=== PATIENT | female | born 1960 | race Caucasian/White ===

== ENCOUNTER 2020-07-26 17:40 | Emergency (ER) | payer OTHER, SELFPAY ==
[2020-07-26] VITALS (8 sets, daily range): BP systolic 119–144; BP diastolic 58–96; PULSE 91–108; RESP 15–25; TEMP 37.7; O2SAT 100
--- NOTE | ~2020-07-26 | CT_ITS ---
EXAMINATION: CT abdomen pelvis wo con DATE: 07/26/2020 19:40 INDICATION: Kidney stones. TECHNIQUE: Computed tomography (CT) of the abdomen and pelvis was performed without intravenous contr ast. Automated exposure control and iterative reconstruction technique were employed. The dose-length product was 184.96 mGy-cm. COMPARISON: None FINDINGS: Lung bases are clear. Heart size is normal. No pericardial or pleural effusion. Bilateral breast impl ants. Liver, gallbladder, spleen, pancreas and bilateral adrenal glands are normal. Bilateral nephrol ithiasis including 3 stones measuring up to 2 mm in the right kidney and at least 5 stones measuring up to 4 mm in the left kidney. There is mild left hydroureteronephrosis extending proximally from a p air of stones in the mid left ureter, the more cephalad measuring 5 x 3 mm and the more caudal measur ing 3 x 4 mm. There is moderate colonic diverticulosis with a sigmoid predominance. There is no danial cent inflammatory change to suggest diverticulitis. Small bowel and appendix are normal. Bladder, an teverted uterus and bilateral adnexa are unremarkable. No free intraperitoneal gas or fluid. No patho logically enlarged abdominal or pelvic lymphadenopathy. Mild lumbar levocurvature. Minimal to mild sc attered degenerative skeletal changes. IMPRESSION: 1. Bilateral nephrolithiasis with a pair of obstructing stones in the mid left ureter resulting in mi ld left hydroureteronephrosis. 2. Moderate diverticulosis. Reviewed, dictated and finalized at location A. IMPRESSION: 1. Bilateral nephrolithiasis with a pair of obstructing stones in the mid left ureter resulting in mild left hydroureteronephrosis. 2. Moderate diverticulosis.
--- NOTE | ~2020-07-26 | XR_ITS ---
EXAMINATION: XR chest 2V DATE: 07/26/2020 19:08 INDICATION: Tachycardia. Hematuria and weakness. TECHNIQUE: frontal and lateral views of the chest were obtained. COMPARISON: Chest radiograph and CT dated 04/10/2014 FINDINGS: Unchanged chronic mild left apical pleural-parenchymal scarring. Lungs otherwise clear with no other airspace opacities, pulmonary edema, pleural effusion or pneumothorax. The cardiomediastinal silhouet te is normal. Bilateral breast implants. IMPRESSION: 1. No acute cardiopulmonary disease. Reviewed, dictated and finalized at location A.
--- NOTE | 2020-07-26 17:49 | ECG_ITS ---
Measurements Intervals [place] Rate: 116 P: 69 CA: 128 QRS: 79 QRSD: 82 T: 57 QT: 295 QTc: 410 Interpretive Statements SINUS TACHYCARDIA BASELINE ARTIFACT- I, III, AVR, AVL, AVF, V1-V2, V4-V5 ABNORMAL ECG Electronically Signed On 07-26-2020 20:31:52 CDT by Frank Shelton D.O.
[2020-07-26 18:07] LABS: Basophils Percent Auto 0.3 % (0.2-1.2); Eosinophils Absolute Auto 0.1 K/mm3 (0-0.3); Eosinophils Percent Auto 0.9 % (0-4.4); Hematocrit 39.7 % (37.0-47.0); Hemoglobin 13.6 g/dL (12.0-15.0); Immature Granulocyte Absolute 0.03 K/mm3 (0.00-0.031); Immature Granulocyte Percent A 0.3 % (0-0.5); Lymphocytes Absolute Auto 1.83 K/mm3 (0.9-3.2); Lymphocytes Percent Auto 19.6 % (18.3-44.2); Mean Corpuscular HGB Conc 34.3 g/dl (32-36); Mean Corpuscular Hemoglobin 32.8 pg (26-34); Mean Corpuscular Volume 95.7 fl (80-100); Mean Platelet Volume 10.7 fl (7.4-10.4); Monocytes Absolute Auto 0.9 K/mm3 (0.1-0.6); Monocytes Percent Auto 9.9 % (2.6-8.5); Neutrophils Absolute Auto 6.5 K/mm3 (1.3-6.7); Platelet Count Result 295 k/mm3 (150-375); Red Blood Count 4.15 M/mm3 (4.2-5.4); Red Cell Distribution Width 12.9 % (11.5-14.5); White Blood Count 9.3 K/mm3 (4.5-10.0)
[2020-07-26 18:18] LABS: Anion Gap 15 mmol/L (8-16); Blood Urea Nitrogen 40 mg/dL (7-17); Calcium 10.4 mg/dL (8.4-10.2); Carbon Dioxide 24 mmol/L (22-30); Chloride 97 mmol/L (98-107); Estimated CRCL calculation 36 ml/min; Estimated Glomerular Filt Rate 36; Glucose 110 mg/dL (65-105); Partial Thromboplastin Time 25.5 SECONDS (22.3-36.8); Potassium 3.9 mmol/L (3.4-5.0); Sodium 136 mmol/L (137-145)
[2020-07-26 18:30] LABS: Troponin I < 0.012 ng/mL (0.000-0.034)
[2020-07-26] MEDS: ASPIRIN 81 MG CHEWABLE TABLET 324 MG PO (18:38)
--- NOTE | 2020-07-26 18:46 | ED.GENADULT ---
HPI - General Adult General Chief complaint: Arrhythmia/Palpitations Stated complaint: racing heart Time Seen by Provider: 07/26/20 18:30 Source: patient Mode of arrival: ambulatory Limitations: no limitations History of Present Illness HPI narrative: 60 years old white female presents with general weakness and dizziness started weeks ago. Patient reports the above symptoms started after pulling her teeth for dentures placement 6- 7 weeks ago. Patient had new denture 5 days ago, is not repeated today because at first, last time was seen by her dentist 2 days ago. Patient did not drink today because patient does not be attention to fluids, she did not eat solid food because it hurt, but was able soft diet like Jell-O and pudding. Currently patient is asymptomatic. Patient denies any fever, chills, nausea, vomiting, diarrhea, constipation, chest pain, shortness of breath, back pain or headache. Related Data Home Medications Medication Instructions Recorded Confirmed baclofen 10 mg PO 07/26/20 bupropion HCl 150 mg PO 07/26/20 hydrochlorothiazide 25 mg PO 07/26/20 Allergies Allergy/AdvReac Type Severity Reaction Status Date / Time No Known Allergies Allergy Unverified 07/26/20 18:32 Review of Systems Review of Systems: Narrative: CONSTITUTIONAL: Denies fever, chills, or sweats. EYES: Denies visual changes, redness, or discharge. ENT: Denies rhinorrhea, congestion, sore throat, or otalgia. CARDIOVASCULAR: Denies chest pain, palpitations, or edema. RESPIRATORY: Denies cough or dyspnea. GASTROINTESTINAL: Denies abdominal pain, nausea, vomiting, or diarrhea. GENITOURINARY: Denies dysuria or hematuria. SKIN: Denies rash or itching. MUSCULOSKELETAL: Denies back pain, joint pain, or myalgia. NEUROLOGIC: Denies headache, numbness, or weakness. PSYCHIATRIC: Denies anxiety or depression. PMFSH Past Medical History Medical History (Updated 07/26/20 @ 19:02 by Antionette Martin MD) Depression Hypertension Social History Social History (Updated 07/26/20 @ 18:50 by Antionette Martin MD) Social History: Patient denies smoking or drinking. Second hand tobacco smoke exposure: No Exam Narrative: Exam Narrative: General appearance: Well-developed, well-nourished Skin: Normal color Head: Normocephalic, nontraumatic Eyes: Clear conjunctiva ENT: Oropharynx normal, ears normal, nose normal, patient does not have teeth or dentures. Neck: Supple, nontender Chest and respiratory: Airway patent, no respiratory distress, no accessory muscle use Heart: Regular rate/rhythm Abdomen: Soft, nontender, no organomegaly, quiet bowel sounds Vascular: Normal peripheral pulses, normal capillary refill. Musculoskeletal: Normal range of motion, nontender back Neurologic: Alert and oriented ?3, LOAN ASSISTANT is normal as tested, no gross motor deficit Course Course Emergency Course: Stable Vital Signs Vital signs: Vital Signs Temperature 37.7 C H 07/26/20 17:51 Pulse Rate 100 07/26/20 17:51 Respiratory Rate 16 07/26/20 17:51 Blood Pressure 119/58 L 07/26/20 17:51 Pulse Oximetry 100 07/26/20 17:51 Temperature 37.7 C H 07/26/20 17:51 Pulse Rate 99 07/26/20 18:32 Respiratory Rate 23 H 07/26/20 18:32 Blood Pressure 143/95 H 07/26/20 18:32 Pulse Oximetry 100 07/26/20 18:32 Medical Decision Making MDM Narrative Medical decision making narrative: Patient presents with dizziness and weakness since pulling her teeth 6 -7 months ago. Poor p.o. intake probably the underlying cause of patient's symptoms. Patient reports eating solid food hurt, but drinking does not hurt and does not drink because she does not pay attention to fluid. Labs, IV flu
[2020-07-26 18:47] LABS: Add Urine Microscopic? YES; Appearance Urine Cloudy (Clear); Bilirubin Urine Negative (Negative); Blood Urine 3+ (Negative); Color Urine Red (Yellow); Glucose Urine UA Negative (Negative); Ketones Urine Trace mg/dL (Negative); Leukocyte Esterase Ur Trace LEU/UL (Negative); Mucus Urine Rare /lpf; Nitrate Urine Negative (Negative); Protein Urine 2+ mg/dL (Negative); RBC Urine >75 /hpf (0-2); Specific Grav Ur 1.018 (1.001-1.035); Squamous Epithelial Cell Urine Many /hpf (Few); Urobilinogen Urine Negative mg/dL (<2.0)
[2020-07-26] MEDS: SODIUM CHLORIDE 0.9% IV 1,000 ML 999 ML IV CONT ×2 (18:49→19:48)
--- NOTE | 2020-07-26 19:27 | ED.GENADULT ---
HPI - General Adult General Chief complaint: Arrhythmia/Palpitations Stated complaint: racing heart Time Seen by Provider: 07/26/20 18:30 Source: patient Mode of arrival: ambulatory Limitations: no limitations History of Present Illness HPI narrative: 60 years old white female presents with tachycardia on exertion with lightheadedness and dizziness. Patient got up fast from sleep to help her who had large scalp laceration with a lot of blood. Patient looked at the blood and immediately fainted, went to urgent care with a diagnosis of fracture of left fibula and tachycardia at that time. Patient report fainting when she see blood or watch scary movies. Patient noticed that her urine is bloody since yesterday. Denies any frequency or burning sensation. Patient had similar symptoms secondary to kidney stone. Currently complaining of little suprapubic discomfort. Patient denies any nausea, vomiting, fever, chills, coughing, chest pain, shortness of breath or headache. Related Data Home Medications Medication Instructions Recorded Confirmed baclofen 10 mg PO 07/26/20 bupropion HCl 150 mg PO 07/26/20 hydrochlorothiazide 25 mg PO 07/26/20 Allergies Allergy/AdvReac Type Severity Reaction Status Date / Time No Known Allergies Allergy Unverified 07/26/20 18:32 Review of Systems Review of Systems: Narrative: CONSTITUTIONAL: Denies fever, chills, or sweats. EYES: Denies visual changes, redness, or discharge. ENT: Denies rhinorrhea, congestion, sore throat, or otalgia. CARDIOVASCULAR: Denies chest pain, palpitations, or edema. RESPIRATORY: Denies cough or dyspnea. GASTROINTESTINAL: Denies abdominal pain, nausea, vomiting, or diarrhea. GENITOURINARY: Denies dysuria or hematuria. SKIN: Denies rash or itching. MUSCULOSKELETAL: Denies back pain, joint pain, or myalgia. NEUROLOGIC: Denies headache, numbness, or weakness. PSYCHIATRIC: Denies anxiety or depression. PMFSH Past Medical History Medical History Depression Hypertension Social History Social History Social History: Patient denies smoking or drinking. Second hand tobacco smoke exposure: No Exam Narrative: Exam Narrative: General appearance: Well-developed, well-nourished Skin: Normal color Head: Normocephalic, nontraumatic Eyes: Clear conjunctiva ENT: Oropharynx normal, ears normal, nose normal Neck: Supple, nontender Chest and respiratory: Airway patent, no respiratory distress, no accessory muscle use Heart: Regular rate/rhythm Abdomen: Soft, nontender, no organomegaly, quiet bowel sounds Vascular: Normal peripheral pulses, normal capillary refill. Musculoskeletal: Normal range of motion, nontender back, walking boot on left foot Neurologic: Alert and oriented ?3, BOLT HEADER is normal as tested, no gross motor deficit Course Course Emergency Course: Stable Vital Signs Vital signs: Vital Signs Temperature 37.7 C H 07/26/20 17:51 Pulse Rate 100 07/26/20 17:51 Respiratory Rate 16 07/26/20 17:51 Blood Pressure 119/58 L 07/26/20 17:51 Pulse Oximetry 100 07/26/20 17:51 Temperature 37.7 C H 07/26/20 17:51 Pulse Rate 108 H 07/26/20 19:27 Respiratory Rate 19 07/26/20 19:15 Blood Pressure 144/96 H 07/26/20 19:27 Pulse Oximetry 100 07/26/20 19:15 Medical Decision Making MDM Narrative Medical decision making narrative: Patient presents with fainting which high likely secondary to vasovagal which he had it before. And this will explain her tachycardia at that time. Lately patient been having tachycardia when she stands up and walk. Orthostat
[2020-07-26 21:05] LABS: Troponin I < 0.012 ng/mL (0.000-0.034)
== END 2020-07-26 20:52 | disposition home or self-care (01) ==
PROVIDERS: Emergency Provider Emergency Medicine
DX: E86.0 Dehydration (principal); I95.1 Orthostatic hypotension; N13.2 Hydronephrosis with renal and ureteral calculous obstruction; F32.9 Major depressive disorder, single episode, unspecified; I10 Essential (primary) hypertension; K57.90 Diverticulosis of intestine, part unspecified, without perforation or abscess without bleeding; R00.0 Tachycardia, unspecified; R31.9 Hematuria, unspecified
CPT/HCPCS: 36415; 71046; 74176; 80048; 81001; 84484; 85025; 85610; 85730; 93005; 96360; 96361; 99284; A9270; J7030

== ENCOUNTER → 2022-11-27 16:13 | Outpatient (CLI) | payer OTHER, SELFPAY ==
--- NOTE | ~2022-11-27 | XR_ITS ---
EXAMINATION: XR hand LT 2V DATE: 11/27/2022 16:39 INDICATION: Left hand pain. TECHNIQUE: 2 views of left hand were obtained. COMPARISON: None. FINDINGS: Bone alignment is normal. No fracture. There is mild osteoarthritis of first interphalangea l joint, fourth proximal interphalangeal joint, and fourth distal interphalangeal joint. IMPRESSION: 1. Mild polyarticular osteoarthritis. Reviewed, dictated and finalized at location A. ANCE EDUCATION COORDINATOR
== END ==
PROVIDERS: PCP Chiropractor; Visit Provider Chiropractor
DX: M19.042 Primary osteoarthritis, left hand (principal)
CPT/HCPCS: 73120

== ENCOUNTER 2024-02-24 15:00 | Emergency (ER) | payer OTHER, SELFPAY ==
[2024-02-24 15:11] VITALS: BP 163/110; PULSE 110; RESP 16; TEMP 37.2; O2SAT 100
--- NOTE | 2024-02-24 15:28 | ED.GENADULT ---
HPI - General Adult General Chief complaint: Extremity Injury, Lower Stated complaint: hip pain Time Seen by Provider: 02/24/24 15:05 Source: patient and family Mode of arrival: ambulatory Limitations: no limitations History of Present Illness HPI narrative: 63-year-old with a history of hypertension, anxiety disorder here with the complaints of left hip pain which has been ongoing for last several weeks. Patient is here for MRI of the left hip. Patient states that she was seen by primary doctor who ordered an MRI but it is not until 6 weeks in she cannot wait any longer. She denies any trauma. No history of fever or chills. She takes Tylenol or ibuprofen for pain and which is not really helping her to function. Onset (ago): week(s) Location: lower extremity Severity: moderate Quality: aching Pain Consistency: constant Relieving factors: none Exacerbating factors: none Associated symptoms: denies other symptoms Related Data Home Medications Medication Instructions Recorded Confirmed baclofen 10 mg tablet 10 mg PO 07/26/20 09/28/23 bupropion HCl 150 mg tablet,12 hr 150 mg PO 07/26/20 09/28/23 sustained-release hydrochlorothiazide 25 mg tablet 25 mg PO 07/26/20 09/28/23 Allergies Allergy/AdvReac Type Severity Reaction Status Date / Time No Known Allergies Allergy Verified 09/28/23 08:02 Review of Systems Review of Systems: All systems reviewed & are unremarkable except as noted in HPI and below Constitutional: Constitutional: Reports no additional constitutional complaints Eyes: Eyes: Reports no additional eye complaints ENT: Reports system reviewed and no additional complaints, except as documented Cardiovascular: Cardiovascular: Reports no additional cardiovascular complaints Respiratory: Respiratory: Reports no additional respiratory complaints Gastrointestinal: Gastrointestinal: Reports no additional gastrointestinal complaints Musculoskeletal: Musculoskeletal: Reports as per HPI Neurologic: Reports system reviewed and no additional complaints, except as documented [facility] Past Medical History Medical History (Updated 02/24/24 @ 15:33 by Olvin Orourke MD) Depression Hypertension Family History Family History Mother Kidney malignancy Father Kidney malignancy Social History Social History Social History: Patient denies smoking or drinking. Smoking status: Never smoker Second hand tobacco smoke exposure: No Alcohol intake: current Alcohol use details: socially Substance use: never Lack of Transportation: No Lack of Food: Never True Current Housing: I Have Housing Concerned About Future Housing: No Difficulty Paying Gas/Electric Bills: No Difficulty Paying for Meds: No Currently Unemployed: No Education: Associate Degree Difficulty w/ Childcare or Family Care: No Living arrangements: with family Occupation/Education: occupation Additional occupation/education comments: interior design Exam Narrative: GENERAL: Well-appearing, well-nourished, and in no acute distress. Anxious HEAD: Normocephalic, atraumatic. EYES: PERRLA and EOMI. ENT: Nares clear, no rhinorrhea or epistaxis. Mucous membranes moist. NECK: Supple. CHEST: Clear to auscultation. No respiratory distress. HEART: Regular rate and rhythm. No murmur heard. Normal peripheral pulses. EXTREMITIES: Normal range of motion. No edema. SKIN: Warm, dry, no rash. NEURO: No focal deficits. Alert and oriented x3. PSYCH: Normal mood and affect. Course Course Emergency Course: Informed patient and her about the procedures of getting MRI. Unfortunately we cannot order MRI through the emergency room. As it is not an acute emergent she advise her to contact her primary doctor for earlier appointment and also for pain management. Vital Signs Vital signs: Vital Signs
[2024-02-24] MEDS: HYDROcodone/acetaminophen (*CRX) 5-325 MG TABLET 1 TAB PO (15:41)
== END 2024-02-24 15:49 | disposition home or self-care (01) ==
PROVIDERS: Emergency Provider Family Medicine; PCP Nurse Practitioner Family
DX: M25.552 Pain in left hip (principal); I10 Essential (primary) hypertension; F32.A Depression, unspecified
CPT/HCPCS: 99283; A9270

== ENCOUNTER 2024-03-09 06:55 | Outpatient (CLI) | payer OTHER, SELFPAY ==
--- NOTE | ~2024-03-09 | XR_ITS ---
Lumbosacral Spine: AP and lateral views Clinical History: Pain Findings: There is straightening of normal cervical lordosis. No fracture or subluxation. There is mo derate to advanced degenerative disc narrowing at L2-L3. There is mild degenerative change at the rem ainder of the lumbar spine. There are mild to moderate facet joint degenerative changes throughout th e lumbar spine. The sacroiliac joints are normally outlined. Impression: Moderate degenerative spondylosis, as above. Reviewed, dictated and finalized at location M. Impression: Moderate degenerative spondylosis, as above.
== END 2024-03-09 06:56 ==
PROVIDERS: PCP Nurse Practitioner Family; Visit Provider Chiropractor
DX: M47.896 Other spondylosis, lumbar region (principal)
CPT/HCPCS: 72100

== ENCOUNTER → 2025-02-14 15:31 | Outpatient (CLI) | payer OTHER, SELFPAY ==
--- NOTE | ~2025-02-14 | XR_ITS ---
HISTORY: RIB PAIN COMPARISON: None TECHNIQUE: 2 views of the left ribs along with a frontal view of the chest were performed. FINDINGS: No acute displaced fracture is appreciated. Cortical irregularity is identified along the inferior border of the left ninth, 10th and 11th ribs, for which prior fracture deformity with callus formation is suspected. The adjacent left lung is unremarkable. Bone mineralization is age-appropriate. IMPRESSION: No acute displaced rib fracture. Cortical irregularity along the inferior border of the left ninth, 10th and 11th ribs for which prior fracture deformity with callus formation is suspected. If clinical suspicion persists, cross-sectional imaging (noncontrast enhanced CT examination of the c hest) is suggested for further evaluation. Reviewed, dictated and finalized at location A. IMPRESSION: No acute displaced rib fracture. Cortical irregularity along the inferior border of the left ninth, 10th and 11t h ribs for which prior fracture deformity with callus formation is suspected. If clinical suspicion persists, cross-sectional imaging (noncontrast enhanced C T examination of the chest) is suggested for further evaluation.
== END ==
LOC: EXPCRAD 15:34
PROVIDERS: PCP Nurse Practitioner Family; Visit Provider Nurse Practitioner Family
DX: M95.4 Acquired deformity of chest and rib (principal)
CPT/HCPCS: 71101